=== PATIENT | male | born 1985 | race Caucasian/White ===

== ENCOUNTER 2021-09-11 23:37 | Emergency (ER) | payer SELFPAY ==
--- NOTE | 2021-09-12 02:13 | ED Physician Documentation ---
History of Present Illness - Stated complaint Stated Complaint: EOH - Chief complaint Chief Complaint: General - History obtained from History obtained from: Patient, Other (s.o.) - Additonal information Additional information: brought to ED by s.o.; they were at a wedding today. significant other says patient had three beers before the wedding and then had several drinks of liquor during the wedding, last drink was approximately 9:20 PM. He exhibited decreasing level of consciousness and vomited several times. She was able to get him into her car to drive him home but by the time they got home, he was too altered to get out of the car or even be woken. Review of Systems Unable to obtain: Intoxicated PD PAST MEDICAL HISTORY - Past Medical History Past Medical History: No - Allergies Allergies/Adverse Reactions: Allergies Allergy/AdvReac Type Severity Reaction Status Date / Time No Known Drug Allergies Allergy Verified 09/11/21 23:45 PD ED PE NORMAL - Vitals Vital signs reviewed: Yes - General General: Alert and oriented X 3, No acute distress, Well developed/nourished, Other (awakens to voice, falls asleep quickly. he follows commands and answers are appropriate though slurred speech noted. ) - HEENT HEENT: Atraumatic - Cardiac Cardiac: RRR, No murmur - Respiratory Respiratory: No respiratory distress, Clear bilaterally - Abdomen Abdomen: Soft, Non tender - Neuro Neuro: Alert and oriented X 3 Eye Opening: To Voice Motor: Obeys Commands Verbal: Oriented GCS Score: 14 Results - Vitals Vitals: Oxygen O2 Source Room air PD MEDICAL DECISION MAKING - ED course Complexity details: considered differential, d/w patient ED course: By the time of this evaluation, patient is drowsy but awakens to voice and provides appropriate answers. I discussed with s.o. that provided he does not drink any more alcohol tonight, he should only continue to sober up and that he is safe for discharge at this time. She is comfortable with taking him home. Departure - Departure Disposition: Home, Self Care Clinical Impression: Alcohol intoxication Condition: Good Instructions: ED Alcohol Intoxication Discharge Date/Time: 09/12/21 03:01
[2021-09-12 03:01] VITALS: BP 118/72
== END 2021-09-12 03:01 | disposition home or self-care (01) ==
LOC: ED 23:37
DX: F10.129 Alcohol abuse with intoxication, unspecified (principal)
CPT/HCPCS: 99281